=== PATIENT | male | born 1970 | race Caucasian/White ===

== ENCOUNTER 2016-09-27 20:59 | Observation (INO) | payer BC ==
[~2016-09-27] VITALS: Ht 193 cm; Wt 137.5 kg
[2016-09-27] VITALS (9 sets, daily range): BP systolic 109–147; BP diastolic 71–88; PULSE 74–106; RESP 14–16; TEMP 98.9; O2SAT 96–97
[~2016-09-27 20:59] MED LIST: ALLO300T2 PO; FISH1000 PO; LISI-360 PO; TAB-TAB PO; TAMS0.4C67 PO; VICOTAB4 PO
[2016-09-27] MEDS ORDERED: SODIUM CHLORID 0.9% 500 ML INJ 500 ML IV ONE (21:30)
[2016-09-27] MEDS ORDERED: SODIUM CHLORIDE 0.9% FLUSH 10 ML FLUSH IVF PRN (21:30)
[2016-09-27] MEDS ORDERED: ASPIRIN 325 MG TAB PO ONE (21:30)
[2016-09-27] MEDS ORDERED: MORPHINE SULFATE 4 MG/ML INJ IV PUSH ONE (21:30)
[2016-09-27 21:38] LABS: BASOPHIL % 0.3 % (0.0-2.0); EOSINOPHIL # 0.2 TH/MM3 (0-0.4); EOSINOPHIL % 2.2 % (0.0-4.0); HEMO FLAGS DIFF FINAL; LYMPH % 39.5 % (9.0-44.0); LYMPHOCYTE # 3.1 TH/MM3 (1.0-4.8); MEAN CORPUSCULAR HEMOGLOBIN 29.4 PG (27.0-34.0); MEAN CORPUSCULAR HGB CONC 33.8 % (32.0-36.0); MONO % 6.6 % (0.0-8.0); NEUT % 51.4 % (16.0-70.0); PLATELET COUNT 213 TH/MM3 (150-450); RED BLOOD COUNT 5.29 MIL/MM3 (4.50-5.90); RED CELL DISTRIBUTION WIDTH 12.3 % (11.6-17.2); WHITE BLOOD COUNT 7.8 TH/MM3 (4.0-11.0)
[2016-09-27] MEDS: NITROGLYCERIN 0.4 MG SL 25 TABS/BTL SL SCH ×3 (21:44→21:58)
[2016-09-27 21:47] LABS: CHLORIDE 102 MEQ/L (98-107); POTASSIUM 3.4 MEQ/L (3.5-5.1); SODIUM (NA) 138 MEQ/L (136-145)
[2016-09-27 21:50] LABS: ANION GAP 7 MEQ/L (5-15); BICARBONATE 29.3 MEQ/L (21.0-32.0); BLOOD UREA NITROGEN 16 MG/DL (7-18); MAGNESIUM 2.2 MG/DL (1.5-2.5)
--- NOTE | 2016-09-27 21:51 | RADHPO ---
EXAM DATE/TIME: 09/27/2016 21:30 [place] COMPARISON: No previous studies available for comparison. INDICATIONS : Chest pain radiating down left arm for 3 hours MEDICAL HISTORY : None. SURGICAL HISTORY : None. ENCOUNTER: Initial ACUITY: 1 day PAIN SCORE: 6/10 LOCATION: Left chest FINDINGS: A single view of the chest demonstrates the lungs to be symmetrically aerated without evidence of mas s, infiltrate or effusion. The cardiomediastinal contours are unremarkable. Osseous structures are intact. CONCLUSION: 1. Cardiomegaly. No acute pulmonary disease. Ike Steve MD on September 27, 2016 at 21:50 Board Certified Radiologist. This report was verified electronically.
[2016-09-27 21:52] LABS: APTT (PATIENT) 25.3 SEC (24.3-30.1); INTERNATIONAL NORMALIZED RATIO 0.9 RATIO; PROTHROMBIN TIME - PATIENT 10.2 SEC (9.8-11.6)
[2016-09-27 21:53] LABS: GLOMERULAR FILTRATION RATE 73 ML/MIN (>89)
[2016-09-27 21:57] LABS: CREATINE KINASE 206 U/L (39-308)
--- NOTE | 2016-09-27 21:57 | PD ---
HPI Chief Complaint: Chest Pain Time Seen by Provider: 21:16 Travel History International Travel<30 days: No Contact w/Intl Traveler<30days: Yes (Pt in proximity with visitor from [facility] a few days ago) History of Present Illness HPI Patient's 45. He arrives to the ER by private auto. He was at a movie theater and developed chest pain and pain into the left arm followed by numbness in the left fingers. (In the ER patient states specifically he has no chest pain, rather discomfort.) Severity 4/10. He got up and went to the lobby however symptoms persisted, so he drove the ER. He has no sob. No cough. Today was a normal day for him without medical complaint, no overexertion. He has HTN. He denies DM, HLD, tobacco. No family hx CAD. In ER his primary complaint is L shoulder pain with radiation to the hand and numbness in the fingers from the proximal interphalangeal joints distally. Additionally he had perioral paresthesias. He's had no weakness. PFSH Past Medical History Arthritis: No Anxiety: No Depression: No Cancer: No Cardiovascular Problems: No Cerebrovascular Accident: No Developmental Delay: No Diabetes: Yes (glumteza extended release) Endocrine: Yes (on medication) Glaucoma: No Genitourinary: Yes (lithotripsy) Headaches: No Hepatitis: No Hiatal Hernia: No Hypertension: Yes Immune Disorder: No Kidney Stones: Yes Musculoskeletal: No Neurologic: No Psychiatric: No Respiratory: Yes (SLEEP APNEA) Immunizations Current: No Migraines: No Seizures: No Thyroid Disease: No PNEUMOCCOCAL Vaccine (Year): 2 Past Surgical History Abdominal Surgery: Yes (pyloric stenosis) Appendectomy: Yes Cardiac Surgery: No Ear Surgery: No Endocrine Surgery: No Eye Surgery: No Genitourinary Surgery: Yes (lithotripsy) Gynecologic Surgery: No Oral Surgery: No Thoracic Surgery: No Social History Alcohol Use: No Tobacco Use: No Substance Use: No Allergies-Medications (Allergen,Severity, Reaction): Coded Allergies: No Known Allergies (Unverified , 09/27/16) Reported Meds & Prescriptions Reported Meds & Active Scripts Active Flomax (Tamsulosin HCl) 0.4 Mg Cap 0.4 Mg PO BID Vicoprofen (Hydrocodone Bitartrate/Ibuprofen) 7.5 Mg/200 Mg Tab 1 Tab PO QIDPRN FOR PAIN Reported Allopurinol 300 Mg Tab 300 Mg PO DAILY Lisinopril 10 Mg Tab 10 Mg PO DAILY Fish Oil 1,000 Mg Cap 1,200 Mg PO Multivitamin (Multivitamins) 1 Tab Tab 1 Tab PO DAILY Review of Systems Except as stated in HPI: all other systems reviewed are Neg General / Constitutional: No: Fever Cardiovascular: Positive: Chest Pain or Discomfort, No: Palpitations, Diaphoresis Respiratory: No: Shortness of Breath Gastrointestinal: No: Nausea, Vomiting Neurologic: Positive: Paresthesia, No: Weakness, Focal Abnormalities, Coordination Problem, Tremor, Ataxia, Headache, Change in Mentation, Slurred Speech Physical Exam Narrative GENERAL: 45 yo M, WNWD, pleasant, mild distress/anxiety SKIN: Warm and dry. HEAD: Atraumatic. Normocephalic. EYES: Pupils equal and round. No scleral icterus. No injection or drainage. ENT: No nasal bleeding or discharge. Mucous membranes pink and moist. NECK: Trachea midline. No JVD. CARDIOVASCULAR: Regular rate and rhythm. RESPIRATORY: No accessory muscle use. Clear to auscultation. Breath sounds equal bilaterally. GASTROINTESTINAL: Abdomen soft, non-tender, nondistended. Hepatic and splenic margins not palpable. MUSCULOSKELETAL: Extremities without clubbing, cyanosis, or edema. No obvious deformities. NEUROLOGICAL: Awake and alert. No obvious cranial nerve deficits. Motor grossly within normal limits. Hand flight engineer manager 5/5 equal bilaterally. Upper extremity strength 5/5 bilaterally throughout. CN III-XII normal. Normal speech, memory and mentation. PSYCHIATRIC: Appropriate mood and affect; insight and judgment normal. Data Data Last Documented VS Vital Signs Date Time Temp Pulse Resp B/P Pulse Ox O2 Delivery O2 Flow Rate FiO2 09/27/16 22:05 16 09/27/16 21:56 99 138/73 96 Room Air 09/27/16 21:00 98.9 HR approx 80 at 2104, upon reassessment prior to admission BP 108/88 at 2204, RR 16 Orders Electrocardiogram (09/27/16 21:16) Basic Metabolic Panel (Bmp) (09/27/16 21:16) Ckmb (Isoenzyme) Profile (09/27/16 21:16) Complete Blood Count With Diff (09/27/16 21:16) Magnesium (Mg) (09/27/16 21:16) Prothrombin Time / Inr (Pt) (09/27/16 21:16) Act Partial Throm Time (Ptt) (09/27/16 21:16) Troponin I (09/27/16 21:16) Chest, Single Ap (09/27/16 21:16) Ecg Monitoring (09/27/16 21:16) Bilateral Bp Monitoring (09/27/16 21:16) Iv Access Insert/Monitor (09/27/16 21:16) Oximetry (09/27/16 21:16) Oxygen Administration (09/27/16 21:16) Aspirin (Aspirin) (09/27/16 21:30) Morphine Inj (Morphine Inj) (09/27/16 21:30) Sodium Chloride 0.9% Flush (Ns Flush) (09/27/16 21:30) Nitroglycerin Sl (Nitrostat Sl) (09/27/16 21:30) Sodium Chlorid 0.9% 500 Ml Inj (Ns 500 M (09/27/16 21:30) CKMB (09/27/16 21:10) CKMB% (09/27/16 21:10) Place In Observation (09/27/16 22:17) Activity Bed Rest With Brp (09/27/16 22:17) Vital Signs (Adult) Q4H (09/27/16 22:17) Cardiac Rhythm .As Directed (09/27/16 22:17) Notify Dr: Other .PRN (09/27/16 22:17) Notify DrWesly Parameters (09/27/16 22:17) Resp Oxygen Nasal Cannula (09/27/16 ) Diet Npo (09/28/16 Breakfast) Ckmb (Isoenzyme) Profile (09/27/16 23:55) Ckmb (Isoenzyme) Profile (09/28/16 02:55) Troponin I (09/27/16 23:55) Troponin I (09/28/16 02:55) Electrocardiogram (09/27/16 23:55) Electrocardiogram (09/28/16 02:55) ^ Obtain (09/27/16 22:17) Sodium Chloride 0.9% Flush (Ns Flush) (09/27/16 22:30) Sodium Chloride 0.9% Flush (Ns Flush) (09/28/16 09:00) Rubber Grinder / Telemetry ISMA.Q8H (09/27/16 22:17) Admit Order (Ed Use Only) (09/27/16 22:19) Labs Laboratory Tests Test 09/27/16 21:10 White Blood Count 7.8 TH/MM3 Red Blood Count 5.29 MIL/MM3 Hemoglobin 15.5 GM/DL Hematocrit 46.0 % Mean Corpuscular Volume 87.0 FL Mean Corpuscular Hemoglobin 29.4 PG Mean Corpuscular Hemoglobin 33.8 % Concent Red Cell Distribution Width 12.3 % Platelet Count 213 TH/MM3 Mean Platelet Volume 8.5 FL Neutrophils (%) (Auto) 51.4 % Lymphocytes (%) (Auto) 39.5 % Monocytes (%) (Auto) 6.6 % Eosinophils (%) (Auto) 2.2 % Basophils (%) (Auto) 0.3 % Neutrophils # (Auto) 4.0 TH/MM3 Lymphocytes # (Auto) 3.1 TH/MM3 Monocytes # (Auto) 0.5 TH/MM3 Eosinophils # (Auto) 0.2 TH/MM3 Basophils # (Auto) 0.0 TH/MM3 CBC Comment DIFF FINAL Differential Comment Prothrombin Time 10.2 SEC Prothromb Time International 0.9 RATIO Ratio Activated Partial 25.3 SEC Thromboplast Time Sodium Level 138 MEQ/L Potassium Level 3.4 MEQ/L Chloride Level 102 MEQ/L Carbon Dioxide Level 29.3 MEQ/L Anion Gap 7 MEQ/L Blood Urea Nitrogen 16 MG/DL Creatinine 1.10 MG/DL Estimat Glomerular Filtration 73 ML/MIN Rate Random Glucose 101 MG/DL Calcium Level 9.0 MG/DL Magnesium Level 2.2 MG/DL Total Creatine Kinase 206 U/L Creatine Kinase MB 1.5 NG/ML Troponin I LESS THAN 0.02 NG/ML MDM Medical Decision Making Medical Screen Exam Complete: Yes Emergency Medical Condition: Yes Medical Record Reviewed: Yes Differential Diagnosis NSTEMI, unstable angina, coronary vasospasm, PE, PTX, aortic dissection, pericarditis, myocarditis, endocarditis, PNA, esophageal disease, aneurysm, musculoskeletal etiologies, anxiety, cocaine/sympathomimetic abuse Narrative Course EKG: Sinus, rate 81, T wave flattening in III, normal axis/intervals CXR: cardiomegaly without acute abnormality otherwise. CBC & BMP Diagram 09/27/16 21:10 Tn < 0.02 Reassessment at approx 10:00pm. Pt resting comfortably. He reports resolution of L shoulder discomfort. Persistent paresthesias in the distal L fingers reported. NETWORK OPERATIONS CENTER TECHNICIAN protocol considered next best step for patient. Pt agreeable with plan. Diagnosis Primary Impression: Chest pain Qualified Code: R07.9 - Chest pain, unspecified type Additional Impression: Paresthesia of left arm Admitting Information Admitting Physician Requests: Observation Bob Christensen MD September 27, 2016 21:57
[2016-09-27 22:09] LABS: CKMB 1.5 NG/ML (0.5-3.6)
[2016-09-27] MEDS ORDERED: SODIUM CHLORIDE 0.9% FLUSH 10 ML FLUSH PRN (22:30)
[2016-09-28 00:05] VITALS: BP 105/70; PULSE 74; RESP 16; O2SAT 97
[2016-09-28] MEDS ORDERED: LISI10TA3 PO (00:28)
[2016-09-28] MEDS ORDERED: IMIT50TA PO (00:28)
[2016-09-28] MEDS ORDERED: ESCI10TA PO (00:28)
[2016-09-28] MEDS ORDERED: FISH1000 PO (00:28)
[2016-09-28] MEDS ORDERED: ALLO300T2 PO (00:28)
[2016-09-28] MEDS ORDERED: MULTTAB67 PO (00:28)
[2016-09-28] MEDS ORDERED: ASPI81CH CHEW (00:28)
[2016-09-28] MEDS ORDERED: TRAZ50TA12 PO (00:28)
[2016-09-28 00:38] LABS: CREATINE KINASE 176 U/L (39-308)
[2016-09-28 00:51] LABS: CKMB 1.4 NG/ML (0.5-3.6)
[2016-09-28 01:00] VITALS: BP 133/88; PULSE 69; RESP 18; TEMP 97.6; O2SAT 96
[2016-09-28 01:30] VITALS: PULSE 65
[2016-09-28 03:51] LABS: CREATINE KINASE 175 U/L (39-308)
[2016-09-28 04:00] VITALS: BP 118/81; PULSE 69; RESP 20; TEMP 96.9; O2SAT 97
[2016-09-28 04:03] LABS: CKMB 1.2 NG/ML (0.5-3.6)
[2016-09-28 08:00] VITALS: BP 137/93; PULSE 68; RESP 16; TEMP 98.3; O2SAT 98
--- NOTE | 2016-09-28 08:49 | HHI.HP ---
HPI Service [facility] Primary Care Physician Buzz Garsia, Admission Diagnosis Chest Pain Diagnoses: (1) Shoulder pain, left Diagnosis: Principal (2) Paresthesia of left arm Diagnosis: Principal (3) Chest tightness Diagnosis: Principal Chief Complaint: L shoulder pain, numbness, chest tightness Travel History International Travel<30 Days: No Contact w/Intl Traveler <30 Da: Yes (Pt in proximity with visitor from [facility] a few days ago) Traveled to Known Affected Are: No History of Present Illness Written by Jacki Welch PA-C acting as scribe for Dr. Verito Giordano on 09/28/16 at 0845. 45-year-old male with history of hypertension, sleep apnea, kidney stones presents with complaint of left shoulder pain and paresthesias in his left arm. The patient states he was watching a movie at the theater yesterday when he had onset of left shoulder pain over 1.5 hours. He's states he had some shooting pains in the left shoulder which affected left neck to his elbow with numbness in his left hand and tingling in his fingers. He states it started approximately 5 PM and lasted until midnight. He states he did have some tightness in his chest but he thought it was related to anxiety and also had some trouble breathing during that time. He states he was "hot" between 4: 56 PM, but denies any nausea or vomiting. He has a history of heartburn but denies any heartburn issues yesterday. He does admit to some compressed disks in his neck and states he has had a nerve issue affecting the right arm but states this left-sided pain was different. Patient states he had a a treadmill stress test performed 2.5 years ago ordered by his primary care physician which was normal. Denies personal history of diabetes or hyperlipidemia. Review of Systems Except as stated in HPI: all other systems reviewed are Neg Past Family Social History Past Medical History Hypertension Nephrolithiasis Sleep apnea Patient also on antidepressant medication Past Surgical History Pyloric stenosis surgery Cholecystectomy Lithotripsy Tonsillectomy and adenoidectomy Reported Medications Reported Trazodone (Trazodone HCl) 50 Mg Tab 50 Mg PO HS Aspirin 81 Mg Chew 81 Mg CHEW DAILY Escitalopram (Escitalopram Oxalate) 10 Mg Tab 10 Mg PO DAILY Imitrex (Sumatriptan Succinate) 50 Mg Tab 50 Mg PO ONCE PRN If a satisfactory response has not been obtained at 2 hours, a second dose may be administered Fish Oil ([place]-3 Fatty Acids) 1,000 Mg Cap 1 Cap PO DAILY Multiple Vitamin 1 Tab 1 Tab PO DAILY Lisinopril 10 Mg Tab 10 Mg PO DAILY Allopurinol 300 Mg Tab 300 Mg PO DAILY Allergies: Coded Allergies: No Known Allergies (Unverified , 09/27/16) Family History Father: CHF diagnosed in his 60s; NM and pacemaker in his 70s. Mother: of lung cancer. Also had a heart murmur. Sisters: No cardiac issues. Social History Rarely drinks alcohol. Denies cigarette smoking. Denies illicit drug use. Physical Exam Vital Signs Vital Signs Date Time Temp Pulse Resp B/P Pulse Ox O2 Delivery O2 Flow Rate FiO2 09/28/16 04:00 96.9 69 20 118/81 97 09/28/16 01:30 65 09/28/16 01:00 97.6 69 18 133/88 96 09/28/16 00:10 74 16 96 Room Air 09/28/16 00:05 74 16 105/70 97 Room Air 09/27/16 23:05 74 16 120/71 97 Room Air 09/27/16 22:40 96 21 09/27/16 22:05 16 09/27/16 22:05 80 16 109/88 96 Room Air 09/27/16 21:58 16 09/27/16 21:56 99 16 138/73 96 Room Air 09/27/16 21:55 96 16 136/87 96 Room Air 138/73 09/27/16 21:50 103 16 147/76 96 Room Air 09/27/16 21:45 106 16 120/83 97 Room Air 09/27/16 21:05 16 97 Room Air 09/27/16 21:05 97 Room Air 09/27/16 21:05 106 16 97 Room Air 09/27/16 21:00 98.9 81 14 140/86 97 Physical Exam GENERAL: This is a tall well-nourished, well-developed patient, in no apparent distress. SKIN: No rashes, ecchymoses or lesions. Warm and dry. HEAD: Atraumatic. Normocephalic. . EYES: No scleral icterus. No injection or drainage. NECK: Trachea midline. CARDIOVASCULAR: Regular rate and rhythm without murmurs, gallops, or rubs. RESPIRATORY: Clear to auscultation. Breath sounds equal bilaterally. No wheezes , rales, or rhonchi. GASTROINTESTINAL: Normoactive bowel sounds. MUSCULOSKELETAL: No lower extremity edema bilaterally. NEUROLOGICAL: Awake and alert. Motor grossly within normal limits. Normal speech. PSYCHIATRIC: normal mood and affect. Normal insight and judgement. Laboratory Laboratory Tests Test 09/27/16 09/28/16 09/28/16 09/28/16 21:10 00:07 03:04 08:10 White Blood Count 7.8 Red Blood Count 5.29 Hemoglobin 15.5 Hematocrit 46.0 Mean Corpuscular Volume 87.0 Mean Corpuscular Hemoglobin 29.4 Mean Corpuscular Hemoglobin 33.8 Concent Red Cell Distribution Width 12.3 Platelet Count 213 Mean Platelet Volume 8.5 Neutrophils (%) (Auto) 51.4 Lymphocytes (%) (Auto) 39.5 Monocytes (%) (Auto) 6.6 Eosinophils (%) (Auto) 2.2 Basophils (%) (Auto) 0.3 Neutrophils # (Auto) 4.0 Lymphocytes # (Auto) 3.1 Monocytes # (Auto) 0.5 Eosinophils # (Auto) 0.2 Basophils # (Auto) 0.0 CBC Comment DIFF FINAL Differential Comment Prothrombin Time 10.2 Prothromb Time International 0.9 Ratio Activated Partial 25.3 Thromboplast Time Sodium Level 138 Potassium Level 3.4 4.0 Chloride Level 102 Carbon Dioxide Level 29.3 Anion Gap 7 Blood Urea Nitrogen 16 Creatinine 1.10 Estimat Glomerular Filtration 73 Rate Random Glucose 101 Calcium Level 9.0 Magnesium Level 2.2 Total Creatine Kinase 206 176 175 Creatine Kinase MB 1.5 1.4 1.2 Troponin I LESS THAN 0.02 LESS THAN 0.02 LESS THAN 0.02 Result Diagram: 09/27/16210909/28/16809 Imaging Last Impressions Chest X-Ray 09/27/162115 Signed Impressions: Service Date/Time: Tuesday, September 27, 2016 21:30 - CONCLUSION: 1. Cardiomegaly. No acute pulmonary disease. Ike Steve MD Assessment and Plan Assessment and Plan 45-year-old male with: Left shoulder pain/paresthesias left arm/chest tightness: Sudden onset yesterday with no injury reported. Patient does have some cervical spine disc issues but denies his left arm symptoms feeling similar to the right sided symptoms he has had in the past. EKGs 3 with normal sinus rhythm and no evidence of ischemia. Troponin 3 less than 0.02. Chest x-ray with mild cardiomegaly but no acute disease. -Patient was given 325 mg of aspirin in the ED. -He was given 3 doses of nitroglycerin the ED but no relief is documented with administration. -Continue daily home baby aspirin -Patient underwent treadmill test with good exercise tolerance and no elicitation of symptoms. Treadmill test was reviewed by motorcycle maker and shows no evidence of ischemia. -Telemetry reviewed; no acute events. Hypertension: -Lisinopril was held this morning prior to treadmill test as patient's blood pressure good overnight. BP started to become mildly elevated this morning. To administer Lisinopril now. Chronic medical conditions: Continue home medications. DVT prevention: early ambulation. Discharge disposition: Home in stable condition. Activity: Regular. Avoid heavy lifting or bending. Diet: Heart healthy, weight management. Medications: Resume home medications. Follow-up: PCP Dr. Garsia one week This note was transcribed by scribe [Vanesa Welch]. I, Dr. Bob Giordano personally performed the history, physical exam, and medical decision making; and confirmed the accuracy of the information in the transcribed note. Authenticated by Dr. Bob Giordano on 09/28/16 at 13:13. Jacki Welch September 28, 2016 08:49 Bob Giordano MD September 28, 2016 13:15
[2016-09-28] MEDS ORDERED: ESCITALOPRAM OXALATE 10 MG TAB PO SCH ×2 (09:00→21:00)
[2016-09-28] MEDS ORDERED: SODIUM CHLORIDE 0.9% FLUSH 10 ML FLUSH IV FLUSH SCH (09:00)
[2016-09-28] MEDS ORDERED: FAMOTIDINE 20 MG TAB PO SCH (10:00)
[2016-09-28] MEDS ORDERED: ASPIRIN 81 MG CHEW TAB CHEW SCH (10:00)
[2016-09-28] MEDS ORDERED: ALLOPURINOL 300 MG TAB PO SCH (10:00)
--- NOTE | 2016-09-28 11:52 | HHI.DCPOC ---
Discharge Care Plan Diagnosis: (1) Shoulder pain, left (2) Paresthesia of left arm (3) Chest tightness Your Health Problems Are: Chest Pain Goals to Promote Your Health * To prevent worsening of your condition and complications * To maintain your health at the optimal level Directions to Meet Your Goals Take your medications as prescribed Follow your dietary instruction Follow activity as directed Keep your appointments as scheduled Take your immunizations and boosters as scheduled If your symptoms worsen call your PCP, if no PCP go to Urgent Care Center or Emergency Room Smoking is Dangerous to Your Health. Avoid second hand smoke Call the 24-hour hour crisis hotline for domestic abuse at Jacki Welch September 28, 2016 11:52
[2016-09-28] MEDS ORDERED: LISINOPRIL 10 MG TAB PO SCH (12:00)
--- NOTE | 2016-09-28 12:30 | EKG ---
Date Performed: 09/27/2016 Time Performed: 23:58:50 PTAGE: 45 years EKG: Sinus rhythm Normal ECG PREVIOUS TRACING : 09/27/2016 21.04 Since previous tracing, no significant change noted DOCTOR: Ike Crockett Interpretating Date/Time 09/28/2016 12:29:18
--- NOTE | 2016-09-28 12:31 | EKG ---
Date Performed: 09/27/2016 Time Performed: 21:04:14 PTAGE: 45 years EKG: Sinus rhythm . Normal ECG NO PREVIOUS TRACING DOCTOR: Ike Crockett Interpretating Date/Time 09/28/2016 12:30:05
--- NOTE | 2016-09-28 12:36 | TR ---
Date Performed: 09/28/2016 Time Performed: 09:43:27 DOCTOR: Ike Crockett DRUG LIST: CLINICAL HISTORY: CHEST PAIN REASON FOR TEST: REASON FOR ENDING: OBSERVATION: CONCLUSION: Patient tolerated SONAL protocol withTotal Exercise Time=8:15 Maximum HH=017 % Max H R Achieved=93.0% Maximum KV=350/100. Testing stopped secondary to goal achieved and normal fatigue. P atient had no chest pain or arm pain during testing or recovery. HR and BP appropriate reponse to exe rcise, and recovered appropriately. COMMENTS: Patient exercised using the Sonal protocol. No electrocardiographic changes were seen to suggest ischemia. Hemodynamic response to exercise was normal. No significant arrhythmia was prese nt.
[2016-09-28] MEDS ORDERED: traZODone HCL 50 MG TAB PO SCH (21:00)
--- NOTE | 2016-09-29 22:07 | EKG ---
Date Performed: 09/28/2016 Time Performed: 02:39:24 PTAGE: 45 years EKG: Sinus rhythm Normal ECG PREVIOUS TRACING : 09/27/2016 23.58 Compared to prior tracing no significant change DOCTOR: Juanpablo Harrington Interpretating Date/Time 09/29/2016 22:06:39
== END 2016-09-28 12:37 | disposition home or self-care (01) ==
LOC: PHED 20:59 → PHEDA 22:19 → PH3B 09-28 00:52
PROVIDERS: ADMIT Hospitalist; ATTEND Hospitalist
DX: R07.89 Other chest pain (principal); M25.512 Pain in left shoulder; R20.9 Unspecified disturbances of skin sensation; I10 Essential (primary) hypertension; Z79.82 Long term (current) use of aspirin; Z82.49 Family history of ischemic heart disease and other diseases of the circulatory system
CPT/HCPCS: 71010; 80048; 82550; 82552; 83735; 84132; 84484; 85025; 85610; 85730; 93005; 93017; 96361; 96374; 99285; G0378; J2270; J7040